=== PATIENT | male | born 1985 | race Caucasian/White ===

== ENCOUNTER 2018-07-22 15:41 | Emergency (ER) | payer MEDICAID, OTHER ==
[~2018-07-22] VITALS: Ht 188 cm; Wt 113.4 kg
--- NOTE | 2018-07-22 16:10 | NUR ---
ED Nurse Note: Patient biba c/o of lower back pain, at time of arrival patient is actively moaning and states that he is unable to breathe, o2 sat at 99%. patient states that pain started yesterday, patient is lert and oriented x4, ambulatory with a steady gait, VSS
[2018-07-22] MEDS: Ketorolac 30mg Inj IV ONE (16:19)
[2018-07-22] MEDS: HYDROmorphone 1mg/ml Carpuject IVP ONE (16:21)
[2018-07-22 16:48] LABS: BASOPHILS % (AUTO) 0.6 % (0.0-2.0); EOSINOPHILS % (AUTO) 2.1 % (0.0-3.0); HEMATOCRIT 47.9 % (42.0-52.0); HEMOGLOBIN 16.6 G/DL (14.2-18.0); LYMPHOCYTES % (AUTO) 30.1 % (20.0-45.0); MEAN CORPUSCULAR VOLUME 88 FL (80-99); MONOCYTES % (AUTO) 7.6 % (1.0-10.0); NEUTROPHILS % (AUTO) 59.6 % (45.0-75.0); PLATELET COUNT 268 K/UL (150-450); RED BLOOD COUNT 5.42 M/UL (4.70-6.10); RED CELL DISTRIBUTION WIDTH 11.1 % (11.6-14.8); WHITE BLOOD COUNT 6.7 K/UL (4.8-10.8)
[2018-07-22 17:06] LABS: ANION GAP 11 mmol/L (5-15); BLOOD UREA NITROGEN 12 mg/dL (7-18); CALCIUM 9.5 MG/DL (8.5-10.1); CARBON DIOXIDE 25 MMOL/L (21-32); CHLORIDE 105 MMOL/L (98-107); CREATININE 1.1 MG/DL (0.55-1.30); POTASSIUM 3.7 MMOL/L (3.5-5.1); SODIUM 141 MMOL/L (136-145)
[2018-07-22 17:13] LABS: ALANINE AMINOTRANSFERASE 52 U/L (12-78); ALBUMIN 4.1 G/DL (3.4-5.0); ALBUMIN/GLOBULIN RATIO 1.1 (1.0-2.7); ALKALINE PHOSPHATASE 68 U/L (46-116); ASPARTATE AMINO TRANSFERASE 22 U/L (15-37); BILIRUBIN,TOTAL 0.4 MG/DL (0.2-1.0)
[2018-07-22 17:29] LABS: APPEARANCE,URINE CLEAR; BILIRUBIN, URINE NEGATIVE (NEGATIVE); COLOR,URINE PALE YELLOW; GLUCOSE, URINE (UA) NEGATIVE (NEGATIVE); KETONES,URINE NEGATIVE (NEGATIVE); LEUKOCYTE ESTERASE ,URINE NEGATIVE (NEGATIVE); NITRITE,URINE NEGATIVE (NEGATIVE); PH,URINE 8 (4.5-8.0); PROTEIN,URINE NEGATIVE (NEGATIVE); UROBILINOGEN,URINE NORMAL MG/DL (0.0-1.0)
[2018-07-22 19:19] VITALS: BP 119/73
--- NOTE | 2018-07-22 20:00 | NUR ---
ED Nurse Note: RECIEVED REPORT TO RESUME CARE, PT IN BED RESTING QUIETLY, AWAKE AND ALERT, SPEAKING WITH FRIEND AT BEDSIDE, PT IS WAITING FOR DISPOSITION ONFORMATION FOR TRANSFER OR ADMIT, PT IS HERE FOR BACK PAIN POSSIBLE COMPRESSION, PT HAS MILD PAIN AT 4/10, IV SITE INTACT AND PATENT IN RIGHT HAND, WILL RESUME CARE ORDERED AND V CONTINUE TO CLOSELY MONITOR.
--- NOTE | 2018-07-22 21:10 | Emergency Room Report ---
History of Present Illness General Chief Complaint: Lower Back Pain or Injury Source: Patient Present Illness HPI Patient presents via EMS with severe back pain. He states he has a herniated disc. This was diagnosed in 2009 after similar presentation but not as severe and without numbness. This iwa diagnosed with an MRI. He was hospitalized and had analgesics at that time. Today he has numbness in his left leg and incontinence of urine. He's unable to ambulate. The back pain is severe radiates to his left leg. It's 10/10 burning and aching. He is unable to ambulate because the pain is severe. He's never had incontinence or numbness like this before. The patient denies fevers, chills, blood thinners or recent trauma, oncologic problems and IV drug abuse. His doctor advised him to come to our hospital or [facility] to get a stat MRI of the back. Allergies: Coded Allergies: No Known Allergies (Unverified , 07/22/18) Patient History Past Medical History: see triage record Social History: Denies: drug use Social History Narrative with friend Reviewed Nursing Documentation: PMH: Agreed; PSxH: Agreed Nursing Documentation-PMH Past Medical History: No Stated History Review of Systems All Other Systems: negative except mentioned in HPI Physical Exam Vital Signs Date Time Temp Pulse Resp B/P (MAP) Pulse Ox O2 Delivery O2 Flow Rate FiO2 07/22/18 16:06 97.3 120 20 132/86 98 Room Air Sp02 EP Interpretation: reviewed, normal General Appearance: well appearing, GCS 15, moderate distress Head: normocephalic Eyes: bilateral eye normal inspection, bilateral eye PERRL, bilateral eye EOMI ENT: moist mucus membranes Neck: supple Respiratory: lungs clear, normal breath sounds Cardiovascular #1: regular rate, rhythm Cardiovascular #2: 2+ radial (R) Gastrointestinal: normal inspection, normal bowel sounds, non tender, no mass, non-distended Musculoskeletal: normal range of motion, no calf tenderness, pelvis stable, decreased range of motion - with pain SLR, other - Unable to weight-bear Neurologic: alert, oriented x3, cerebellar normal, no Babinski, motor weakness - Possibly voluntary left leg -thigh flexion and plantar flexion, sensory deficit - L leg, not anatomic distribution Psychiatric: anxious Reflexes: 2+ knee (R), 2+ knee (L); 1+ ankle (R), 1+ ankle (L) Skin: normal inspection, warm/dry Medical Decision Making Diagnostic Impression: Primary Impression: Intractable back pain Additional Impressions: Incontinence of urine Qualified Codes: R32 - Unspecified urinary incontinence Left leg sensory deficit Left leg weakness ER Course Patient presents with increased back pain leg numbness and incontinence. Differential includes exacerbation of herniated disc, compression, severe back spasm amongst others. The mechanism injury does not fit with the findings however CT the back is indicated. In addition lab work will be performed. The patient will receive IV analgesics. Labwork unremarkable. CT of the back without fracture or malalignment. Patient is improved pain downs states pain is 4/10 after treatment however he still has numbness in his left leg and weakness. Due to the continued pain and neurologic findings the patient needs to get an MRI. We are unable to perform this test at this time. In addition he's requested be transferred. The patient was presented and excepted at [facility]. Discussed with Dr. Rodríguez Laboratory Tests Test 07/22/18 16:30 07/22/18 17:00 White Blood Count 6.7 K/UL (4.8-10.8) Red Blood Count 5.42 M/UL (4.70-6.10) Hemoglobin 16.6 G/DL (14.2-18.0) Hematocrit 47.9 % (42.0-52.0) Mean Corpuscular Volume 88 FL (80-99) Mean Corpuscular Hemoglobin 30.7 PG (27.0-31.0) Mean Corpuscular Hemoglobin Concent 34.7 G/DL (32.0-36.0) Red Cell Distribution Width 11.1 % (11.6-14.8) L Platelet Count 268 K/UL (150-450) Mean Platelet Volume 6.5 FL (6.5-10.1) Neutrophils (%) (Auto) 59.6 % (45.0-75.0) Lymphocytes (%) (Auto) 30.1 % (20.0-45.0) Monocytes (%) (Auto) 7.6 % (1.0-10.0) Eosinophils (%) (Auto) 2.1 % (0.0-3.0) Basophils (%) (Auto) 0.6 % (0.0-2.0) Prothrombin Time 10.7 SEC (9.30-11.50) Prothrombin Time INR 1.0 (0.9-1.1) PTT 27 SEC (23-33) Sodium Level 141 MMOL/L (136-145) Potassium Level 3.7 MMOL/L (3.5-5.1) Chloride Level 105 MMOL/L (98-107) Carbon Dioxide Level 25 MMOL/L (21-32) Anion Gap 11 mmol/L (5-15) Blood Urea Nitrogen 12 mg/dL (7-18) Creatinine 1.1 MG/DL (0.55-1.30) Estimate Glomerular Filtration Rate > 60 mL/min (>60) Glucose Level 95 MG/DL (74-106) Calcium Level 9.5 MG/DL (8.5-10.1) Total Bilirubin 0.4 MG/DL (0.2-1.0) Aspartate Amino Transferase (AST) 22 U/L (15-37) Alanine Aminotransferase (ALT) 52 U/L (12-78) Alkaline Phosphatase 68 U/L (46-116) Total Protein 7.8 G/DL (6.4-8.2) Albumin 4.1 G/DL (3.4-5.0) Globulin 3.7 g/dL Albumin/Globulin Ratio 1.1 (1.0-2.7) Urine Color Pale yellow Urine Appearance Clear Urine pH 8 (4.5-8.0) Urine Specific [place] 1.010 (1.005-1.035) Urine Protein Negative (NEGATIVE) Urine Glucose (UA) Negative (NEGATIVE) Urine Ketones Negative (NEGATIVE) Urine Blood Negative (NEGATIVE) Urine Nitrite Negative (NEGATIVE) Urine Bilirubin Negative (NEGATIVE) Urine Urobilinogen Normal MG/DL (0.0-1.0) Urine Leukocyte Esterase Negative (NEGATIVE) Urine RBC 0-2 /HPF (0 - 0) H Urine WBC 0 /HPF (0 - 0) Urine Squamous Epithelial Cells None /LPF (NONE/OCC) Urine Bacteria Occasional /HPF (NONE) CT/MRI/US Diagnostic Results CT/MRI/US Diagnostic Results : Imaging Test Ordered: Lumbar sacral spine Impression Findings: Bony alignment is normal. Vertebral body heights are preserved. Disc spaces are preserved. No acute fractures. No dislocations. At L4-5, there is circumferential annular bulge which does not significantly compromise the spinal canal or neural foramina. At L5-S1, there is broad-based posterior central disc protrusion which does not significantly compromise the spinal canal or neural foramina. At the remaining levels, no significant disc bulge or protrusion, spinal stenosis, or neural foraminal stenosis. The included extraspinal soft tissues are unremarkable Impression: Negative Last Vital Signs Date Time Temp Pulse Resp B/P (MAP) Pulse Ox O2 Delivery O2 Flow Rate FiO2 07/23/18 00:45 98.4 75 16 129/87 98 Room Air Status: improved Disposition: XFER SHT-COUNTS INCLUDE 234 BEDS AT THE [facility] Condition: Serious - Stable for transfer Scripts No Active Prescriptions or Reported Meds Referrals: [facility],REFERRING (PCP) Edd Guillen MD Jul 22, 2018 21:10
[2018-07-22] MEDS: Hydromorphone 0.5mg/0.5ml inj IVP ONE (21:14)
--- NOTE | 2018-07-22 22:30 | NUR ---
ED Nurse Note: pt continues to rest quietly in bed, awake and alert, pt pain level increased back to 8/10, tp was re-meddicated and meds were effective, pt pain at 3/10, pt continues to wait for disposition information for admit or transfer, no chagnes or increased distress noted, will continue to closely monitor.
[2018-07-22 23:00] VITALS: BP 124/77
--- NOTE | 2018-07-23 00:20 | NUR ---
ED Nurse Note: Pt being transferred to [facility] for continued care, report called to kristynrn at [phone], all pertinent information given, pt is aware of transfer and forms signed, pt belongings list completed also, pt c/o having severe pain and medicated prior to leaving, iv site intact and patent, report given to courtesy van driver [facility] ambulance rig#[id number], pt leaving via gurney with nad noted during transport, pt has friends at bedside and aware of transfer also.
[2018-07-23 00:35] VITALS: BP 129/87
[2018-07-23] MEDS: HYDROmorphone 1mg/ml Carpuject IVP ONE (00:42)
[2018-07-23 00:45] VITALS: BP 129/87
--- NOTE | 2018-07-23 08:28 | Diagnostic Imaging Report ---
Indications: Lumbar pain Technique: Spiral acquisitions obtained through the lumbar spine. Multiplanar reconstructions were generated. No IV contrast utilized. Total dose length product 526.71 mGycm. CTDIvol(s) 16.58 mGy. Dose reduction achieved using automated exposure control Comparison: none Findings: Bony alignment is normal. Vertebral body heights are preserved. Disc spaces are preserved. No acute fractures. No dislocations. At L4-5, there is circumferential annular bulge which does not significantly compromise the spinal canal or neural foramina. At L5-S1, there is broad-based posterior central disc protrusion which does not significantly compromise the spinal canal or neural foramina. At the remaining levels, no significant disc bulge or protrusion, spinal stenosis, or neural foraminal stenosis. The included extraspinal soft tissues are unremarkable Impression: Negative This agrees with the preliminary interpretation provided overnight by [facility]. The CT scanner at [facility] is accredited by the [employer] and the scans are performed using protocols designed to limit radiation exposure to as low as reasonably achievable to attain images of sufficient resolution adequate for diagnostic evaluation.
== END 2018-07-23 00:45 | disposition short-term general hospital (02) ==
LOC: EDBD 15:41 → EMR 16:28
DX: M54.5 Low back pain (principal); R32 Unspecified urinary incontinence; R53.1 Weakness; R29.818 Other symptoms and signs involving the nervous system
CPT/HCPCS: 36415; 72131; 80053; 81001; 85025; 85610; 85730; 96374; 96375; 96376; 99284; J1170; J1885; J2405